=== PATIENT | male | born 1955 | race Caucasian/White ===

== ENCOUNTER 2022-11-20 07:13 | Outpatient (OUT) | payer MEDICARE, SELFPAY ==
[2022-11-20 07:55] LABS: Basophils Absolute Auto 0.1 10^3/uL (0.0-0.1); Basophils Percent Auto 0.9 % (0.2-2.0); Eosinophils Absolute Auto 0.1 10^3/uL (0.0-0.7); Eosinophils Percent Auto 1.9 % (0.9-7.0); Hematocrit 43.6 % (42.0-54.0); Hemoglobin 14.6 g/dL (14.0-18.0); Immature Granulocytes Abs Auto 0.02 10^3/uL (0.00-0.03); Immature Granulocytes Pct Auto 0.4 % (0.0-0.5); Lymphocytes Absolute Auto 1.7 10^3/uL (1.2-3.8); Lymphocytes Percent Auto 29.1 % (20.5-60.0); Mean Corpuscular HGB Conc 33.5 g/dL (29.9-35.2); Mean Corpuscular Volume 95.6 fL (80.0-94.0); Mean Platelet Volume 9.8 fL (9.5-13.5); Monocytes Absolute Auto 0.5 10^3/uL (0.3-0.8); Monocytes Percent Auto 8.4 % (1.7-12.0); Neutrophils Absolute Auto 3.4 10^3/uL (1.4-6.5); Neutrophils Percent Auto 59.3 % (43.0-75.0); Platelet Count 245 10^3/uL (150-450); Red Blood Count 4.56 10^6/uL (4.70-6.10); White Blood Count 5.7 10^3/uL (4.0-11.0)
[2022-11-20 08:12] LABS: Alanine Aminotransferase 39 U/L (16-63); Anion Gap 11.3; BUN Creatinine Ratio 11.3; Calcium 8.8 mg/dL (8.5-10.1); Carbon Dioxide 27.2 mmol/L (21.0-32.0); Chloride 105 mmol/L (98-107); Cholesterol 112 mg/dL (<=200); Estimated GFR (African America >60 (>=60); Estimated GFR (Non-African Ame >60 (>=60); Glucose 123 mg/dL (74-106); HDL Cholesterol 37 mg/dL (40-60); Potassium 4.5 mmol/L (3.5-5.1); Sodium 139 mmol/L (136-145); Triglycerides 64 mg/dL (<=150); VLDL CHOLESTEROL 12.8 mg/dL
[2022-11-20 09:23] LABS: Prostate Specific Antigen Scrn 0.95 ng/mL (<=4.00)
== END 2022-11-20 07:14 | disposition home or self-care (01) ==
LOC: LAB 07:17
PROVIDERS: PCP Internal Medicine; Visit Provider Internal Medicine
DX: E78.00 Pure hypercholesterolemia, unspecified (principal); Z79.899 Other long term (current) drug therapy; I10 Essential (primary) hypertension; Z12.5 Encounter for screening for malignant neoplasm of prostate
CPT/HCPCS: 36415; 80048; 80061; 84460; 85025; G0103

== ENCOUNTER 2023-11-16 07:05 | Outpatient (OUT) | payer MEDICARE, SELFPAY ==
[2023-11-16 07:27] LABS: Basophils Percent Auto 0.6 % (0.2-2.0); Eosinophils Absolute Auto 0.1 10^3/uL (0.0-0.7); Eosinophils Percent Auto 2.1 % (0.9-7.0); Hematocrit 42.2 % (42.0-54.0); Hemoglobin 14.5 g/dL (14.0-18.0); Immature Granulocytes Abs Auto 0.03 10^3/uL (0.00-0.03); Immature Granulocytes Pct Auto 0.5 % (0.0-0.5); Lymphocytes Percent Auto 31.9 % (20.5-60.0); Mean Corpuscular HGB Conc 34.4 g/dL (29.9-35.2); Mean Corpuscular Hemoglobin 32.5 pg (25.9-34.0); Mean Corpuscular Volume 94.6 fL (80.0-94.0); Mean Platelet Volume 9.8 fL (9.5-13.5); Monocytes Absolute Auto 0.6 10^3/uL (0.3-0.8); Monocytes Percent Auto 10.2 % (1.7-12.0); Neutrophils Absolute Auto 3.4 10^3/uL (1.4-6.5); Neutrophils Percent Auto 54.7 % (43.0-75.0); Platelet Count 231 10^3/uL (150-450); Red Blood Count 4.46 10^6/uL (4.70-6.10); Red Cell Distribution Width 12.2 % (11.0-15.0); White Blood Count 6.2 10^3/uL (4.0-11.0)
[2023-11-16 07:43] LABS: Alanine Aminotransferase 42 U/L (16-63); Albumin Level 3.7 g/dL (3.4-5.0); Alkaline Phosphatase 105 U/L (46-116); Aspartate Amino Transferase 24 U/L (15-37); BUN Creatinine Ratio 13.5; Bilirubin Total 0.4 mg/dL (0.2-1.0); Calcium 8.3 mg/dL (8.5-10.1); Carbon Dioxide 24.2 mmol/L (21.0-32.0); Chloride 105 mmol/L (98-107); Cholesterol 118 mg/dL (<=200); Estimated GFR (African America >60 (>=60); Estimated GFR (Non-African Ame >60 (>=60); Globulin 3.6 g/dL; Glucose 125 mg/dL (74-106); HDL Cholesterol 39 mg/dL (40-60); Potassium 4.2 mmol/L (3.5-5.1); Sodium 139 mmol/L (136-145); Total Protein 7.3 g/dL (6.4-8.2); Triglycerides 78 mg/dL (<=150); VLDL CHOLESTEROL 15.6 mg/dL
[2023-11-16 08:07] LABS: Prostate Specific Antigen Scrn 0.99 ng/mL (<=4.00)
== END 2023-11-16 07:06 | disposition home or self-care (01) ==
LOC: LAB 07:07
PROVIDERS: PCP Internal Medicine; Visit Provider Internal Medicine
DX: E78.00 Pure hypercholesterolemia, unspecified (principal); I10 Essential (primary) hypertension; Z12.5 Encounter for screening for malignant neoplasm of prostate
CPT/HCPCS: 36415; 80053; 80061; 85025; G0103

== ENCOUNTER 2024-06-13 08:06 | Outpatient (OUT) | payer MEDICARE, SELFPAY ==
--- OUTSIDE RECORDS SUMMARY | 2024-06-13 08:24 | XMS_ITS | CCD ---
Author Organization [facility] Care Team Providers Care Admissions Evaluator Name Role Phone DR JOSE VALENTE Admitting Unavailable SIDRA, DR GARCIA Attending Unavailable SIDRA, DR GARCIA Primary Care Unavailable SIDRA, DR GARCIA Consulting Unavailable Jose Valente Unavailable Allergies Allergy Classification Reported Allergen(s) Allergy Type Date of Onset Reaction(s) Facility (1 source) patient allergy list reviewed by nurse or physicia Propensity to adverse reactions 9 Comment:Done [employer] Other Medications Current Medications Medication Drug Class(es) Dates Sig (Normalized) Sig (Original) atorvastatin 10 mg oral tablet (7 sources) HMG-CoA Reductase Inhibitor Start: 08-02-2023 End: 11-13-2023 take 10 mg by mouth once daily Atorvastatin Active 10 MG PO Daily 90 90 November 13, 2023 10:42am take 1 tablet by nely th every twenty-four hours Atorvastatin Calcium 10 MG 1 tablet Oral ly Once a day Active lisinopril 20 mg oral tablet (5 sources) Angiotensin Converting Enzyme Inhibitor Start: 11-13-2023 take 20 mg by mouth once daily Lisinopril Active 20 MG PO Daily November 13, 2023 12:00am Lisinopril 20 MG TAKE 1 TABLET DAILY Active Problems Active Problems Problem Classification Problem Date Documented Da te Episodic/Chronic Diabetes mellitus without complication (1 source) Impaired fasting glucose Episodic Disorders of lipid metabolism (18 sources) Familial hypercholesterolemi a; Translations: [Pure hypercholesterolemi a] Onset: 03-31-2015 Chronic Diverticulosis and diverticulitis (4 sources) Diverticular disease; Translations: [Diverticulosis] Chronic Essential hypertension (13 sources) Essential (primary) hypertension; Translations: [Essential hypertension] Onset: 02-16-2014 Chronic Hyperplasia of prostate (8 sources) Lower urinary tract symptoms due to benign prostatic hypertrophy; Translations: [Benign prostatic hyperplasia with lower urinary tract symptoms] Onset: 11-11-2014 Chronic Immunizations and screening for infectious disease (2 sources) Vaccination given; Translations: [Encounter for immunization] Episodic Other aftercare (1 source) Other [employer] (current) drug therapy Episodic Other aftercare (2 sources) Long-term current use of drug therapy; Translations: [Other prison (current) drug therapy] Episodic Other nutritional; endocrine; and metabolic disorders (4 sources) Severe obesity; Translations: [Morbid (severe) obesity due to excess calories] Chronic Other nutritional; endocrine; and metabolic disorders (5 sources) Body mass index 30+ - obesity; Translations: [Body mass index (BMI) 36.0-36.9, adult] Chronic Other nutritional; endocrine; and metabolic disorders (2 sources) Morbid (severe) obesity due to excess calories Chronic Other nutritional; endocrine; and metabolic disorders (1 source) Body mass index (BMI) 36.0-36.9, adult Chronic Other nutritional; endocrine; and metabolic disorders (2 sources) Obese class II; Translations: [Body mass index 35.0-35.9, adult] Onset: 02-16-2014 Chronic Other nutritional; endocrine; and metabolic disorders (2 sources) Obese class I; Translations: [Body mass index 34.0-34.9, adult] Onset: 02-16-2014 Chronic Other nutritional; endocrine; and metabolic disorders (2 sources) Simple obesity ; Translations: [Other obesity due to excess calories] Onset: 02-16-2014 Chronic Other nutritional; endocrine; and metabolic disorders (1 source) Body mass index (BMI) 37.0-37.9, adult Chronic Other screening for suspected conditions (not mental disorders or infectious disease) (3 sources) Encounter for screening for malignant neoplasm of prostate; Translations: [Screening for malignant neoplasms of prostate] Onset: 11-15-2021 Episodic Substance-related disorders (2 sources) Tobacco user; Translations: [Nicotine dependence, cigarettes, in remission] Chronic Syncope (6 sources) Vasovagal syncope; Translations: [Syncope and collapse] Episodic Past or Other Problems Problem Classification Problem Date Documented Da te Episodic/Chronic Conditions associated with dizziness or vertigo (2 sources) Dizziness and giddiness; Translations: [Dizziness and giddiness] Onset: 02-16-2014 Episodic Gastrointestinal hemorrhage (2 sources) Melena; Translations: [Melena] Onset: 02-16-2014 Episodic Malaise and fatigue (2 sources) Malaise and fatigue; Translations: [Other malaise and fatigue] Onset: 07-02-2018 Episodic Other ear and sense organ disorders (2 sources) Infective otitis externa; Translations: [Other infective otitis externa, right ear] Onset: 02-28-2017 Episodic Other nutritional; endocrine; and metabolic disorders (2 sources) Obesity; Translations: [Obesity, unspecified] Resolved: 05-09-2022 Chronic Other skin disorders (2 sources) Actinic keratosis; Translations: [Actinic keratosis] Onset: 11-11-2014 Episodic Otitis media and related conditions (2 sources) Eustachian tube salpingitis; Translations: [Unspecified Eustachian salpingitis, right ear] Resolved: 05-09-2022 Episodic Screening and history of mental health and substance abuse codes (2 sources) History of tobacco use; Translations: [Personal history of tobacco use, presenting hazards to health] Onset: 02-28-2017 Episodic Unclassified (2 sources) Long-term current use of drug therapy; Translations: [Long-term (current) use of other medications] Onset: 06-29-2016 Results Test Name Value Interpretation Reference Range Facil ity CBC AUTO DIFFon 11-10-2021 BASO # 0.0 103/ul Normal 0.0-0.1 [facility] Comment on above: Performed By: #### C BC #### [facility] [address] [place] [address] Dr. Casi Crews Basophils/100 WBC (Bld) 0.6 % Normal 0.2-2.[address] [facility] Comment on above: Performed By: #### C BC #### [facility] [address] [address] [address] Casi Crews EO # 0.1 103/ul Normal 0.0-0.[address] [facility] Comment on above: Performed By: #### C BC #### [facility] [address] [place] [address] Dr. Casi Crews Eosinophils/100 WBC (Bld) 1.6 % Normal 0.9-7.0 [facility] Comment on above: Performed By: #### C BC #### [facility] [address] [place] [address] Dr. Casi Crews Erythrocyte distribution width (RBC) [Ratio] 12.5 % Normal 11.0-15.0 [facility] Comment on above: Performed By: #### C BC #### [facility] [address] [place] [address] Dr. Casi Crews Hematocrit (Bld) [Volume fraction] 44.1 % Normal 42.0-54.0 [facility] Comment on above: Performed By: #### C BC #### [facility] [address] [place] [address] Dr. Casi Crews Hemoglobin (Bld) [Mass/Vol] 15.0 g/dL Normal 14.0-18.0 [facility] Comment on above: Performed By: #### C BC #### [facility] [address] [place] [address] Dr. Casi Crews IG # 0.02 10e3/ul Normal 0.00-0.03 [facility] Comment on above: Performed By: #### C BC #### [facility] [address] [place] [address] Dr. Casi Crews IG % 0.3 % Normal 0.0-0.5 [facility] Comment on above: Performed By: #### C BC #### [facility] [address] [place] [address] Dr. Casi Crews LYMPH # 1.7 103/ul Normal 1.2-3.8 [facility] Comment on above: Performed By: #### C BC #### [facility] [address] [place] [address] Dr. Casi Crews Lymphocytes/100 WBC (Bld) 27.5 % Normal 20.5-60.0 [facility] Comment on above: Performed By: #### C BC #### [facility] [address] [place] [address] Dr. Casi Crews MANUAL DIFF REQ NO Normal [facility] Comment on above: Performed By: #### C BC #### [facility] [address] [place] [address] Dr. Casi Cresw MCH (RBC) [Entitic mass] 32.1 pg Normal 25.9-34.[address] [facility] Comment on above: Performed By: #### C BC #### [facility] [address] [place] [address] Dr. Casi Crews MCHC (RBC) [Mass/Vol] 34.0 g/dL Normal 29.9-35.[address] [facility] Comment on above: Performed By: #### C BC #### [facility] [address] [place] [address] Dr. Casi Crews MCV (RBC) [Entitic vol] 94.2 fL Critically high 80.0-94.0 [facility] Comment on above: Performed By: #### C BC #### [facility] [address] [place] [address] Dr. Casi Crews MONO # 0.6 103/ul Normal 0.3-0.8 [facility] Comment on above: Performed By: #### C BC #### [facility] [address] [place] [address] Dr. Casi Crews Monocytes/100 WBC (Bld) 9.3 % Normal 1.7-12.0 [facility] Comment on above: Performed By: #### C BC #### [facility] [address] [place] [address] Dr. Casi Crews NEUT # 3.8 103/ul Normal 1.4-6.[address] [facility] Comment on above: Performed By: #### C BC #### [facility] [address] [place] [address] Dr. Casi Crews Neutrophils/100 WBC (Bld) 60.7 % Normal 43.0-75.[address] [facility] Comment on above: Performed By: #### C BC #### [facility] [address] [place] [address] Dr. Casi Crews Platelet mean volume (Bld) [Entitic vol] 9.8 fL Normal 9.5-13.[address] [facility] Comment on above: Performed By: #### C BC #### [facility] [address] [place] [address] Dr. Casi Crews PLT 226 103/ul Normal 150-450 [facility] Comment on above: Performed By: #### C BC #### [facility] [address] [address] [address] Casi Crews RBC 4.68 106/ul Critically low 4.70-6.10 [facility] Comment on above: Performed By: #### C BC #### [facility] [address] [address] [address] Casi Crews WBC 6.2 103/ul Normal 4.0-11.0 [facility] Comment on above: Performed By: #### C BC #### [facility] [address] [place] [address] Dr. Casi Crews LIPID PROFILEon 11-10-2021 CHOL-HDL RATIO NORM SEE BELOW Normal [facility] Comment on above: Result Comment: 3.3 - 4.4 LOW RISK 4.4 - 7.1 AVERAGE RISK 7.1 - 11.0 MODERATE RISK >11.0 HIGH RISK Performed By: #### B MP, LIPID #### [facility] [address] [place] [address] Dr. Casi Crews Cholesterol [Mass/Vol] 113 mg/dL Normal <=200 [facility] Comment on above: Performed By: #### B MP, LIPID #### [facility] [address] [place] [address] Dr. Casi Crews Cholesterol in HDL [Mass/Vol] 32 mg/dL Critically low 40-60 [facility] Comment on above: Performed By: #### B MP, LIPID #### [facility] [address] [place] [address] Dr. Casi Crews Cholesterol in LDL [Mass/Vol] 68.8 mg/dL Normal [facility] Comment on above: Performed By: #### B MP, LIPID #### [facility] [address] [place] [address] Dr. Casi Crews Cholesterol.total/C holesterol in HDL [Mass ratio] 3.5 {ratio} Normal [facility] Comment on above: Performed By: #### B MP, LIPID #### [facility] [address] [address] [address] Casi Crews HDL NORMAL > or = 60 mg/dl - LO W CARDIOVASCULAR RISK <40 mg/dl - HIGH CARDIOVASCULAR RISK Normal [facility] Comment on above: Performed By: #### B MP, LIPID #### [facility] [address] [address] [address] Casi Crews LDL CALC NORMAL SEE BELOW Normal [facility] Comment on above: Result Comment: <100 mg/dl OPTIMAL 100 - 129 mg/dl NEAR OR ABOVE OPTIMAL 130 - 159 mg/dl BORDERLINE HIGH 160 - 189 mg/dl HIGH >190 mg/dl VERY HIGH Performed By: #### B MP, LIPID #### [facility] [address] [place] [address] Dr. Casi Crews Triglyceride [Mass/Vol] 61 mg/dL Normal <=150 [facility] Comment on above: Performed By: #### B MP, LIPID #### [facility] [address] [address] [address] Casi Crews VLDL CALC 12.2 mg/dL Normal [facility] Comment on above: Performed By: #### B MP, LIPID #### [facility] [address] [place] [address] Dr. Casi Crews PROF CHEM 8 (BAS METB)on Anion gap [Moles/Vol] 14.5 mmol/L Normal [facility] Comment on above: Performed By: #### B MP, LIPID #### [facility] [address] [place] [address] Dr. Casi Crews Calcium [Mass/Vol] 8.9 mg/dL Normal 8.5-10.1 [facility] Comment on above: Performed By: #### B MP, LIPID #### [facility] [address] [place] [address] Dr. Casi Crews Chloride [Moles/Vol] 104 mmol/L Normal 98-107 [facility] Comment on above: Performed By: #### B MP, LIPID #### [facility] [address] [place] [address] Dr. Casi Crews CO2 [Moles/Vol] 22.9 mmol/L Normal 21.0-32.0 [facility] Comment on above: Performed By: #### B MP, LIPID #### [facility] [address] [address] [address] Casi Cresw Creatinine [Mass/Vol] 1.00 mg/dL Normal 0.70-1.30 [facility] Comment on above: Performed By: #### B MP, LIPID #### [facility] [address] [address] [address] Casi Crews EGFR-AF IRAQI >60 Normal >=60 [facility] Comment on above: Performed By: #### B MP, LIPID #### [facility] [address] [place] [address] Dr. Casi Crews EGFR-NON AF IRAQI >60 Normal >=60 [facility] Comment on above: Performed By: #### B MP, LIPID #### [facility] [address] [place] [address] Dr. Casi Crews Glucose [Mass/Vol] 112 mg/dL Critically high 74-106 [facility] Comment on above: Performed By: #### B MP, LIPID #### [facility] [address] [place] [address] Dr. Casi Crews Potassium [Moles/Vol] 4.4 mmol/L Normal 3.5-5.1 [facility] Comment on above: Performed By: #### B MP, LIPID #### [facility] [address] [place] [address] Dr. Casi Crews Sodium [Moles/Vol] 137 mmol/L Normal 136-145 [facility] Comment on above: Performed By: #### B MP, LIPID #### [facility] [address] [place] [address] Dr. Casi Crews Urea nitrogen [Mass/Vol] 12.0 mg/dL Normal 7.0-18.0 [facility] Comment on above: Performed By: #### B MP, LIPID #### [facility] [address] [place] [address] Dr. Casi Crews Urea nitrogen/Creatinine [Mass ratio] 12.0 mg/mg Normal [facility] Comment on above: Performed By: #### B MP, LIPID #### [facility] [address] [address] [address] Casi Crews Vital Signs Date Time Vital Sign Value Performing Clinician Facility 11-13-2023 10:16-0400 Body height 175.26 cm [facility] 11-13-2023 10:16-0400 Body mass index (BMI) [Ratio] 35.4 kg/m2 [facility] 11-13-2023 10:16-0400 Body weight 108.63 kg [facility] 11-13-2023 10:16-0400 Diastolic blood pressure 74 mm[Hg] [facility] 11-13-2023 10:16-0400 Heart rate 78 /min [facility] 11-13-2023 10:16-0400 Respiratory rate 12 /min [facility] 11-13-2023 10:16-0400 Systolic blood pressure 116 mm[Hg] [facility] 06-29-2023 10:30-0500 Body height 170.18 cm Jose Ball Other [facility] [employer] Other 06-29-2023 10:30-0500 Body mass index (BMI) [Ratio] 37.99 kg/m2 Jose Ball Other [facility] [employer] Other 06-29-2023 10:30-0500 Body weight 110.04 kg Jose Ball Other [employer] [facility] [employer] Other 06-29-2023 10:30-0500 Diastolic blood pressure 84 mm[Hg] Jose Ball Other [facility] [employer] Other 06-29-2023 10:30-0500 Respiratory rate 12 /min Jose Ball Other [employer] [facility] [employer] Other 06-29-2023 10:30-0500 Systolic blood pressure 144 mm[Hg] Jose Ball Other [employer] Other 11-09-2022 09:00-0400 Body height 170.18 cm Jose Ball Other [employer] Other 11-09-2022 09:00-0400 Body mass index (BMI) [Ratio] 36.96 kg/m2 Jose Ball Other [employer] Other 11-09-2022 09:00-0400 Body weight 107.05 kg Jose Ball Other [employer] Other 11-09-2022 09:00-0400 Diastolic blood pressure 74 mm[Hg] Jose Ball Other [employer] Other 11-09-2022 09:00-0400 Respiratory rate 12 /min Jose Ball Other [employer] Other 11-09-2022 09:00-0400 Systolic blood pressure 111 mm[Hg] Jose Ball Other [employer] Other Encounters Encounter Date Encounter Type Care Provider Facility Start: 11-13-2023 End: 11-13-2023 ambulatory [facility] Work Phone: Start: 11-13-2023 End: 11-13-2023 Patient encounter procedure [facility] Work Phone: Start: 06-29-2023 End: 06-29-2023 ambulatory Jose Ball Other [employer] Other Start: 06-29-2023 Office outpatient vi sit 25 minutes Jose Ball [facility] Start: 06-08-2023 End: 06-08-2023 ambulatory Jose Ball Other [employer] Other Start: 06-08-2023 Telephone encounter Jose Sidra [facility] Start: 11-20-2022 End: 11-20-2022 ambulatory Jose Valente Other [employer] Other Start: 11-20-2022 Telephone encounter [facility] Start: 11-09-2022 End: 11-09-2022 ambulatory Jose Valente Other [employer] Other Start: 11-09-2022 Patient encounter procedure [facility] Start: 11-10-2021 End: 11-11-[address] JOSE VALENTE Facility: Start: 11-08-2021 Adult health examination Jose Valente Other [employer] Other Procedures Date Procedure Procedure Detail Performing Clinician Start: 11-10-[address] MARSHALL IN [place] Comment on above: Performed By: #### [facility] #### [facility] [address] [place] [address] Dr. Casi Crews Start: 03-31-2015 General examination of patient Jose Valente Other Start: 03-31-2015 Screening for malign ant neoplasm of prostate Jose Valente Other Depression screening Quinn Valente Other Screening for malign ant neoplasm of colon Jose Valente Other Screening for malign ant neoplasm of prostate Jose Valente Other Plan of Treatment Date Care Activity Detail Author Comprehensive metabo lic 2000 panel - Serum or Plasma [facility] enter [facility] Immunizations Immunization Date Immunization Notes Care Provider Fa cili 05-03-2021 pneumococcal polysaccharide vaccine, 23 valent Jose Valente Other [facility] 04-22-2021 COVID-19 [facility] Other [facility] 08-31-2020 COVID-19 Nicole Garcia [facility] Other [facility] 08-03-2020 COVID-19 Nicole Garcia [facility] Other [facility] 06-04-2015 tetanus and diphther ia toxoids, adsorbed, preservative free, for adult use (5 Lf of tetanus toxoid and 2 Lf of diphtheria toxoid) [facility] 06-04-2015 tetanus toxoid, redu evelyne diphtheria toxoid, and acellular pertussis vaccine, adsorbed Jose Ball Other [employer] Other Payers Date Payer Category Payer Unknown [id number] 1955 Unknown [id number] Social History Date Type Detail Facility Sex Assigned At [facility] [employer] Other Start: 11-13-2023 Tobacco smoking stat us [facility] Never smoked tobacco (finding) [facility] Start: 1955 Sex Assigned At Male F [facility] Evaluation note 06-29-2023 Note Date & Type Note Facility 06-29-2023 Evaluation note Encounter Date Diagnosis Assessment Notes Jun, Primary hypertension (ICD-10 - I10) This patient is instructed to consume a healthy, low-fat, low-salt diet. They are also encouraged to continue exercise to achieve/maintain a normal BMI. Patient is instructed on home BP measurements: - rest for 5 minutes w/o talking.- positioned w/ feet on floor and arm supported.- average best 2/3 readings w/ goal < 135/85.- update office w/ home readings in 2 weeks. Jun, IFG (impaired fasting glucose) (ICD-10 - R73.01) Instructed on a low calorie, low carb, high fiber diet. Instructed to begin exercise routine at minimum 3x weekly and lose weight. Sent order for A1C to hospital Reviewed s/s diabetes and adverse effects of uncontrolled diabetes Jun, Pure hypercholesterolemia (ICD-10 - E78.00) Instructed on diet and exercise with continued statin therapy.Discusse d the beneficial effects of lowering cholesterol in reducing the risk for cerebrovascular and cardiovascular disease. Jun, Morbid (severe) obesity due to excess calories (ICD-10 - E66.01) This patient has been instructed on a low-fat, high-fiber diet. They are instructed to reduce calories, portion sizes and snacks. It is recommended that they exercise for 30 minutes, 3-5 times weekly. Jun, Body mass index [BMI] 37.0-37.9, adult (ICD-10 - Z68.37) [employer] Other Evaluation note 11-09-2022 Note Date & Type Note Facility 11-09-2022 Evaluation note Encounter Date Diagnosis Assessment Notes Oct, Medicare annual wellness visit, initial (ICD-10 - Z00.00) Personalized health advice was given to the beneficiary including a written plan for screenings discussed and provided. Advanced care planning reviewed and/or information given as requested. Additional counseling was provided here today in regards to, [ ]. The above visit was performed by [ ] under direct supervision of [ ]. Document reviewed and amended by provider signed below. Oct, Primary hypertension (ICD-10 - I10) This patient is instructed to consume a healthy, low-fat, low-salt diet. They are also encouraged to continue exercise to achieve/maintain a normal BMI. Oct, Pure hypercholesterolemia (ICD-10 - E78.00) Instructed on diet and exercise with continued statin therapy.Discusse d the beneficial effects of lowering cholesterol in reducing the risk for cerebrovascular and cardiovascular disease. Oct, Morbid (severe) obesity due to excess calories (ICD-10 - E66.01) Oct, Body mass index [BMI] 36.0-36.9, adult (ICD-10 - Z68.36) Oct, Screening PSA (prostate specific antigen) (ICD-10 - Z12.5) Yearly JOJO and PSA Oct, High risk medication use (ICD-10 - Z79.899) [employer] Other Evaluation note Note Date & Type Note Facility Evaluation note No Information [facility] Other Evaluation note Note Date & Type Note Facility Evaluation note Diagnosis Onset Date Hypercholesterolemia acute Hypertension acute Medicare annual wellness visit, subsequent noneactive Screening PSA (prostate specific antigen) noneactive [facility] Work Phone: History general Narrative - Reported Note Date & Type Note Facility History general Narrative - Reported Type Medical History Benign prostatic hyp erplasia with lower urinary tract symptoms Medical History Primary hypertension Medical History Pure hypercholesterolemia Medical History Vasovagal syncope Surgical History COLONOSCOPY 2013 Surgical History APPENDECTOMY Hospitalization History SEE SURGICAL HX [employer] Other History general Narrative - Reported Note Date & Type Note Facility History general Narrative - Reported [employer] Other Summary Purpose Family History Relationship Condition Age at Onset Recorded Date/T akosua father Heart disease Unknown Hypertension Unknown Advance Directives Advance Directive Response Recorded Date/ Time Advance Directives No June 29, 2023 11:53am Chief Complaint and Reason for Visit Chief Complaint Wellness Reason for Visit Hypercholesterolemia Hypertension Medicare annual wellness visit, subsequent Screening PSA (prostate specific antigen) Additional Source Comments (unrecognized sect ion and content) No Status Records Found INFORMATION SOURCE (unrecogn ized section and content) DATE CREATED AUTHOR 11/16/2021 [facility] REASON FOR VISIT (unrecogniz ed section and content) WELLNESSCologuardBP check Care Teams (unrecognized sec tion and content) Team Status: Active Member Role Status Dates Jose Valente DO Primary Care Provider Active Team Status: Inactive Member Role Status Dates Jose Valente DO Primary Care Provide r, Attending Provider Active Start: November 13, 2023 End: November 13, 2023 Goals (unrecognized section and content) Goals may be documented in a n alternate section FOR RECORDS PERTAINING TO PATIENTS WHO ARE OR HAVE BEEN ENROLLED IN A CHEMICAL DEPENDENCY/SUBSTANCEABUSE PROGRAM, SOME INFORMATION MAY BE OMITTED. This clinical summary was aggregated from multiple sources. Caution should be exercised in using it in the provision of clinical care. This summary normalizes information from multiple sources, and as a consequence, information in this document may materially change the coding, format and clinical context of patient data. In addition, data may be omitted in some cases. CLINICAL DECISIONS SHOULD BE BASED ON THE PRIMARY CLINICAL RECORDS. [employer] provides no warranty or guarantee of the accuracy or completeness of information in this document.
[2024-06-13 09:23] LABS: Estimated Average Glucose 126 mg/dL
== END 2024-06-13 08:07 | disposition home or self-care (01) ==
LOC: LAB 08:07
PROVIDERS: PCP Internal Medicine; Visit Provider Internal Medicine
DX: R73.01 Impaired fasting glucose (principal)
CPT/HCPCS: 36415; 83036

== ENCOUNTER 2025-01-16 09:05 | Outpatient (OUT) | payer MEDICARE, SELFPAY ==
--- NOTE | 2025-01-16 09:16 | XR_ITS ---
The [address] [address] Patient Name: GWEN VEGA MRN: [id number] date: 1955 Sex: M Assigned Patient Location: [facility] Current Patient Location: [facility] Accession/Order Number: [id number] Exam Date: 01/16/2025 09:35 Report Date: 01/16/2025 11:05 At the request of: MERCEDES VALENTE DO Procedure: XR knee SAMEER 4V BILATERAL KNEES - 4 views each COMPARISON: None CLINICAL DATA: Bilateral knee pain for the past couple months, without injury. Difficulty ambulating. Weightbearing AP, lateral, internal oblique and patellar views were obtained. No acute fractures or dislocation are noted. No patellar subluxation is seen. There is mild to moderate narrowing at the medial tibiofemoral joint compartment on the right. There is no disproportionate joint space narrowing on the left. Tricompartment marginal spurring is seen. There is a trace amount joint fluid. No soft tissue swelling is noted. XR/XR knee SAMEER 4V IMPRESSION: MILD DEGENERATIVE CHANGES, GREATEST AT THE MEDIAL RIGHT KNEE. NO ACUTE BONY FINDINGS. Impression dictated by: Ruby Govea M.D. 01/16/2025 11:05 AM Dictation Location: [place] [address] Electronically authenticated by: [id number] Y Date: 01/16/2025 11:05
--- OUTSIDE RECORDS SUMMARY | 2025-01-16 09:18 | XMS_ITS | CCD ---
Author Organization [facility] CliniSyfl Care Team Providers Care Residential Care Facility Manager Name Role Phone DR JOSE VALENTE Admitting Unavailable SIDRA, DR GARCIA Attending Unavailable SIDRA, DR GARCIA Primary Care Unavailable SIDRA, DR GARCIA Consulting Unavailable Jose Valente Unavailable Jose Valente DO Primary Care Provider [phone] Jose Valente DO Attending Provider Allergies Allergy Classification Reported Allergen(s) Allergy Type Date of Onset Reaction(s) Facility (1 source) patient allergy list reviewed by nurse or physicia Propensity to adverse reactions Comment:Done [facility] Wanted Other Medications Current Medications Medication Drug Class(es) Dates Sig (Normalized) Sig (Original) atorvastatin 10 mg oral tablet (11 sources) HMG-CoA Reductase Inhibitor Start: 10-24-2024 take 1 tablet by mouth once daily Atorvastatin 10 mg tablet Active 0 .ROUTE .COMPLEX October 24, 2024 7:40am TAKE ONE TABLET BY MOUTH EVERY DAY Complies with drug therapy Start: 08-02-2023 End: 10-24-2024 take 1 tablet by mouth once daily Atorvastatin 10 mg tablet Discontinued 10 MG PO Daily November 13, 2023 10:42am October 24, 2024 7:40am take 1 tablet by nely th every twenty-four hours Atorvastatin Calcium 10 MG 1 tablet Orally Once a day Active lisinopril 20 mg oral tablet (7 sources) Angiotensin Converting Enzyme Inhibitor Start: 02-25-2024 Lisinopril 20 mg tablet Active 0 .ROUTE .COMPLEX February 25, 2024 8:47am TAKE 1 TABLET DAILY Complies with drug therapy Start: 11-13-2023 End: 02-25-2024 take 1 tablet by mouth once daily Lisinopril 20 mg tablet Discontinued 20 MG PO Daily November 13, 2023 12:00am February 25, 2024 8:47am Lisinopril 20 MG TAKE 1 TABLET DAILY Active Problems Active Problems Problem Classification Problem Date Documented Date Episodic/Chronic Diabetes mellitus without complication (3 sources) Impaired fasting glucose; Translations: [Impaired fasting glycemia] Episodic Disorders of lipid metabolism (20 sources) Familial hypercholesterolemia; Translations: [Pure hypercholesterolemia] Onset: 03-31-2015 Chronic Diverticulosis and diverticulitis (4 sources) Diverticular disease; Translations: [Diverticulosis] Chronic Essential hypertension (15 sources) Essential (primary) hypertension; Translations: [Essential hypertension] Onset: 02-16-2014 Chronic Hyperplasia of prostate (8 sources) Lower urinary tract symptoms due to benign prostatic hypertrophy; Translations: [Benign prostatic hyperplasia with lower urinary tract symptoms] Onset: 11-11-2014 Chronic Immunizations and screening for infectious disease (2 sources) Vaccination given; Translations: [Encounter for immunization] Episodic Osteoarthritis (2 sources) Osteoarthritis of right knee joint; Translations: [Unilateral primary osteoarthritis, right knee] 05-05-2024 Chronic Other aftercare (1 source) Other group home (current) drug therapy Episodic Other aftercare (2 sources) Long-term current use of drug therapy; 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] Episodic Other non-traumatic joint disorders (1 source) Pain in right knee; Translations: [Right knee pain] 05-05-2024 Episodic Other nutritional; endocrine; and metabolic disorders [...] Chronic Other nutritional; endocrine; and metabolic disorders (4 sources) Obesity; Translations: [Obesity, unspecified] Resolved: 05-09-2022 05-05-2024 Chronic Other nutritional; endocrine; and metabolic disorders (1 source) Body mass index (BMI) 37.0-37.9, adult Chronic Other screening for suspected conditions (not mental disorders or infectious disease) (5 sources) Encounter for screening for malignant neoplasm [...] externa, right ear] Onset: 02-28-2017 Episodic Other skin disorders (2 sources) Actinic keratosis; [...] 11-10-2021 BASO # 0.0 103/ul Normal 0.0-0.1 [facility] Comment on above: Performed By: #### C BC #### [facility] [address] [address] [address] Casi Crews Basophils/100 WBC (Bld) 0.6 % Normal 0.2-2.0 [facility] Comment on above: Performed By: #### C BC #### [facility] [address] [place] [address] Dr. Casi Crews EO # 0.1 103/ul Normal 0.0-0.7 [facility] Comment on above: Performed By: #### C BC #### [facility] [address] [place] [address] Dr. Casi Crews Eosinophils/100 WBC (Bld) 1.6 % Normal 0.9-7.0 [facility] Comment on above: Performed By: #### C BC #### [facility] [address] [place] [address] Dr. Casi Crews Erythrocyte distribution width (RBC) [Ratio] 12.5 % Normal 11.0-15.0 [facility] Comment on above: Performed By: #### C BC #### [facility] [address] [place] [address] Dr. Casi Crews Hematocrit (Bld) [Volume fraction] 44.1 % Normal 42.0-54.0 [facility] Comment on above: Performed By: #### C BC #### [facility] [address] [place] [address] Dr. Casi Crews Hemoglobin (Bld) [Mass/Vol] 15.0 g/dL Normal 14.0-18.0 [facility] Comment on above: Performed By: #### C BC #### [facility] [address] [place] [address] Dr. Casi Crews IG # 0.02 10e3/ul Normal 0.00-0.03 [facility] Comment on above: Performed By: #### C BC #### [facility] [address] [place] [address] Dr. Casi Crews IG % 0.3 % Normal 0.0-0.5 [facility] Comment on above: Performed By: #### C BC #### [facility] [address] [place] [address] Dr. Casi Crews LYMPH # 1.7 103/ul Normal 1.2-3.8 [facility] Comment on above: Performed By: #### C BC #### [facility] [address] [place] [address] Dr. Casi Crews Lymphocytes/100 WBC (Bld) 27.5 % Normal 20.5-60.0 [facility] Comment on above: Performed By: #### C BC #### [facility] [address] [place] [address] Dr. Casi Crews MANUAL DIFF REQ NO Normal [facility] Comment on above: Performed By: #### C BC #### [facility] [address] [place] [address] Dr. Casi Crews MCH (RBC) [Entitic mass] 32.1 pg Normal 25.9-34.0 [facility] Comment on above: Performed By: #### C BC #### [facility] [address] [place] [address] Dr. Casi Crews MCHC (RBC) [Mass/Vol] 34.0 g/dL Normal 29.9-35.2 [facility] Comment on above: Performed By: #### C BC #### [facility] [address] [place] [address] Dr. Casi Crews MCV (RBC) [Entitic vol] 94.2 fL Critically high 80.0-94.0 [facility] Comment on above: Performed By: #### C BC #### [facility] [address] [place] [address] Dr. Casi Crews MONO # 0.6 103/ul Normal 0.3-0.8 [facility] Comment on above: Performed By: #### C BC #### [facility] [address] [place] [address] Dr. Casi Crews Monocytes/100 WBC (Bld) 9.3 % Normal 1.7-12.0 [facility] Comment on above: Performed By: #### C BC #### [facility] [address] [address] [address] Casi Crews NEUT # 3.8 103/ul Normal 1.4-6.5 [facility] Comment on above: Performed By: #### C BC #### [facility] [address] [address] [address] Casi Crews Neutrophils/100 WBC (Bld) 60.7 % Normal 43.0-75.0 [facility] Comment on above: Performed By: #### C BC #### [facility] [address] [address] [address] Casi Crews Platelet mean volume (Bld) [Entitic vol] 9.8 fL Normal 9.5-13.5 [facility] Comment on above: Performed By: #### C BC #### [facility] [address] [address] [address] Casi Crews PLT 226 103/ul Normal 150-450 [facility] Comment on above: Performed By: #### C BC #### [facility] [address] [address] [address] Casi Crews RBC 4.68 106/ul Critically low 4.70-6.10 [facility] Comment on above: Performed By: #### C BC #### [facility] [address] [address] [address] Casi Crews WBC 6.2 103/ul Normal 4.0-11.0 [facility] Comment on above: Performed By: #### C BC #### [facility] [address] [address] [address] Casi Crews LIPID PROFILEon 11-10-2021 CHOL-HDL RATIO NORM SEE BELOW Normal [facility] Comment on above: Result Comment: 3.3 - 4.4 LOW RISK 4.4 - 7.1 AVERAGE RISK 7.1 - 11.0 MODERATE RISK >11.0 HIGH RISK Performed By: #### B MP, LIPID #### [facility] [address] [address] [address] Casi Crews Cholesterol [Mass/Vol] 113 mg/dL Normal <=200 [facility] Comment on above: Performed By: #### B MP, LIPID #### [facility] [address] [address] [address] Casi Crews Cholesterol in HDL [Mass/Vol] 32 mg/dL Critically low 40-60 [facility] Comment on above: Performed By: #### B MP, LIPID #### [facility] [address] [address] [address] Casi Crews Cholesterol in LDL [Mass/Vol] 68.8 mg/dL Normal [facility] Comment on above: Performed By: #### B MP, LIPID #### [facility] [address] [address] [address] Casi Crews Cholesterol.total/C holesterol in HDL [Mass ratio] 3.5 {ratio} Normal [facility] Comment on above: Performed By: #### B MP, LIPID #### [facility] [address] [address] [address] Casi Crews HDL NORMAL > or = 60 mg/dl - LO W CARDIOVASCULAR RISK <40 mg/dl - HIGH CARDIOVASCULAR RISK Normal [facility] Comment on above: Performed By: #### B MP, LIPID #### [facility] [address] [address] [address] Casi Crews LDL CALC NORMAL SEE BELOW Normal [facility] Comment on above: Result Comment: <100 mg/dl OPTIMAL 100 - 129 mg/dl NEAR OR ABOVE OPTIMAL 130 - 159 mg/dl BORDERLINE HIGH 160 - 189 mg/dl HIGH >190 mg/dl VERY HIGH Performed By: #### B MP, LIPID #### [facility] [address] [address] [address] Casi Crews Triglyceride [Mass/Vol] 61 mg/dL Normal <=150 [facility] Comment on above: Performed By: #### B MP, LIPID #### [facility] [address] [address] [address] Casi Crews VLDL CALC 12.2 mg/dL Normal [facility] Comment on above: Performed By: #### B MP, LIPID #### [facility] [address] [place] [address] Dr. Casi Crews PROF CHEM 8 (BAS METB)on Anion gap [Moles/Vol] 14.5 mmol/L Normal [facility] Comment on above: Performed By: #### B MP, LIPID #### [facility] [address] [place] [address] Dr. Casi Crews Calcium [Mass/Vol] 8.9 mg/dL Normal 8.5-10.1 [facility] Comment on above: Performed By: #### B MP, LIPID #### [facility] [address] [place] [address] Dr. Casi Crews Chloride [Moles/Vol] 104 mmol/L Normal 98-107 [facility] Comment on above: Performed By: #### B MP, LIPID #### [facility] [address] [place] [address] Dr. Casi Crews CO2 [Moles/Vol] 22.9 mmol/L Normal 21.0-32.0 [facility] Comment on above: Performed By: #### B MP, LIPID #### [facility] [address] [place] [address] Dr. Casi Crews Creatinine [Mass/Vol] 1.00 mg/dL Normal 0.70-1.30 [facility] Comment on above: Performed By: #### B MP, LIPID #### [facility] [address] [place] [address] Dr. Casi Crews EGFR-AF INDIAN >60 Normal >=60 [facility] Comment on above: Performed By: #### B MP, LIPID #### [facility] [address] [place] [address] Dr. Casi Crews EGFR-NON AF INDIAN >60 Normal >=60 [facility] Comment on above: Performed By: #### B MP, LIPID #### [facility] [address] [place] [address] Dr. Casi Crews Glucose [Mass/Vol] 112 mg/dL Critically high 74-106 [facility] Comment on above: Performed By: #### B MP, LIPID #### [facility] [address] [place], [place] [address] Dr. Casi Crews Potassium [Moles/Vol] 4.4 mmol/L Normal 3.5-5.1 [facility] Comment on above: Performed By: #### B MP, LIPID #### [facility] [address] [place], [place] [address] Dr. Casi Crews Sodium [Moles/Vol] 137 mmol/L Normal 136-145 [facility] Comment on above: Performed By: #### B MP, LIPID #### [facility] [address] [place], [place] [address] Dr. Casi Crews Urea nitrogen [Mass/Vol] 12.0 mg/dL Normal 7.0-18.0 [facility] Comment on above: Performed By: #### B MP, LIPID #### [facility] [address] [place], [place] [address] Dr. Casi Crews Urea nitrogen/Creatinine [Mass ratio] 12.0 mg/mg Normal [facility] Comment on above: Performed By: #### B MP, LIPID #### [facility] [address] [place], [place] [address] Dr. Casi Crews Vital Signs Date Time Vital Sign Value Performing Clinician Facility 12-09-2024 10:15040 Body height 175.26 cm Jose Ball DO Work Phone: [facility] 12-09-2024 10:15-0400 Body mass index (BMI) [Ratio] 35.3 kg/m2 Jose Ball DO Work Phone: [facility] 12-09-2024 10:150400 Body weight 108.46 kg Jose Ball DO Work Phone: [facility] 12-09-2024 10:15-0400 Diastolic blood pressure 76 mm[Hg] Jose Ball DO Work Phone: [facility] 12-09-2024 10:15-0400 Heart rate 91 /min Jose Ball DO Work Phone: [facility] 12-09-2024 10:15-0400 Respiratory rate 12 /min Jose Ball DO Work Phone: [facility] 12-09-2024 10:15-0400 Systolic blood pressure 117 mm[Hg] Jose Ball DO Work Phone: [facility] 11-13-2023 10:16-0400 Body height 175.26 cm [facility] 11-13-2023 10:16-0400 Body mass index (BMI) [Ratio] 35.4 kg/m2 [facility] 11-13-2023 10:16-0400 Body weight 108.63 kg [facility] 11-13-2023 10:16-0400 Diastolic blood pressure 74 mm[Hg] [facility] 11-13-2023 10:16-0400 Heart rate 78 /min [facility] 11-13-2023 10:16-0400 Respiratory rate 12 /min [facility] 11-13-2023 10:16-0400 Systolic blood pressure 116 mm[Hg] [facility] 06-29-2023 10:30-0500 Body height 170.18 cm Jose Ball Other [facility] [employer] Other 06-29-2023 10:30-0500 Body mass index (BMI) [Ratio] 37.99 kg/m2 Jose Ball Other [facility] Other 06-29-2023 10:30-0500 Body weight 110.04 kg Jose Ball Other [facility] [employer] Other 06-29-2023 10:30-0500 Diastolic blood pressure 84 mm[Hg] Jose Ball Other [facility] Other 06-29-2023 10:30-0500 Respiratory rate 12 /min Jose Ball Other [facility] Other 06-29-2023 10:30-0500 Systolic blood pressure 144 mm[Hg] Jose Ball Other [facility] [employer] Other 11-09-2022 09:00-0400 Body height 170.18 cm Jose Valente Other [facility] Other 11-09-2022 09:00-0400 Body mass index (BMI) [Ratio] 36.96 kg/m2 Jose Valente Other [facility] Other 11-09-2022 09:00-0400 Body weight 107.05 kg Jose Valente Other [facility] Other 11-09-2022 09:00-0400 Diastolic blood pressure 74 mm[Hg] Jose Valente Other [facility] Other 11-09-2022 09:00-0400 Respiratory rate 12 /min Jose Valente Other [facility] Other 11-09-2022 09:00-0400 Systolic blood pressure 111 mm[Hg] Jose Valente Other [facility] Other Encounters Encounter Date Encounter Type Care Provider Facility Start: 12-09-2024 End: 12-09-2024 ambulatory Jose Valente DO Work Phone: [facility] Work Phone: Start: 12-09-2024 End: 12-09-2024 Patient encounter procedure Jose Valente DO -[facility] Work Phone: Start: 11-13-2023 End: 11-13-2023 ambulatory [facility] [place] Work Phone: Start: 11-13-2023 End: 11-13-2023 Patient encounter procedure [facility] Work Phone: Start: 06-29-2023 End: 06-29-2023 ambulatory Jose Valente Other [facility] Other Start: 06-29-2023 Office outpatient vi sit 25 minutes Jose Valente [facility] Start: 06-08-2023 End: 06-08-2023 ambulatory Jose Valente Other [facility] Other Start: 06-08-2023 Telephone encounter Jose HEBERT [facility] Start: 11-20-2022 End: 11-20-2022 ambulatory Jose Valente Other [facility] Other Start: 11-20-2022 Telephone encounter [facility] Start: 11-09-2022 End: 11-09-2022 ambulatory Jose Valente Other [facility] Other Start: 11-09-2022 Patient encounter procedure Jose Valente [facility] Start: 11-10-2021 End: 11-11-[address] JOSE VALENTE Facility: Start: 11-08-2021 Adult health examination Jose Valente Other [facility] Other Procedures Date Procedure Procedure Detail Performing Clinician Start: 11-10-[address] [place] Comment on above: Performed By: #### [facility] #### [facility] [address] [place] [address] Dr. Casi Crews Start: 03-31-2015 General examination [...] lic 2000 panel - Serum or Plasma [facility] enter Comprehensive metabo lic 1999 panel - Serum or Plasma [facility] enter [facility] Immunizations Immunization Date Immunization Notes Care Provider Fa [facility] 05-05-2024 influenza, high dose seasonal, preservative-free Jose Valente DO Work Phone: [facility] 05-03-2021 pneumococcal polysaccharide vaccine, 23 valent Jose Valente Other [facility] 04-22-2021 COVID- Nicole Garcia [facility] Other [facility] 08-31-2020 COVID-19 Nicole Garcia [facility] Other [facility] 08-03-2020 COVID-19 Nicole Garcia [facility] Other [facility] 06-04-2015 tetanus and diphther ia toxoids, adsorbed, preservative free, for adult use (5 Lf of tetanus toxoid and 2 Lf of diphtheria toxoid) [facility] 06-04-2015 tetanus toxoid, redu evelyne diphtheria toxoid, and acellular pertussis vaccine, adsorbed Jose Valente Other [facility] [employer] Other Payers Date Payer Category Payer Unknown [id number] 1955 Unknown [id number] Social History Date Type Detail Facility Sex Assigned At [facility] Other Start: 11-13-2023 Tobacco smoking stat us [facility] Never smoked tobacco (finding) [facility] Start: 1955 Sex Assigned At Male F [facility] Sex Male (finding) [facility] Evaluation note 06-29-2023 Note Date & Type [...] index [BMI] 37.0-37.9, adult (ICD-10 - Z68.37) [facility] Other Evaluation note 11-09-2022 Note Date & [...] index [BMI] 36.0-36.9, adult (ICD-10 - Z68.36) 22 Isiah, 2023 Screening PSA (prostate specific antigen) (ICD-10 - Z12.5) Yearly JOJO and PSA Oct, High risk medication use (ICD-10 - Z79.899) [facility] Other Evaluation note Note Date & Type Note Facility Evaluation note No Information [facility] Other Evaluation note Note Date & Type Note Facility Evaluation note Diagnosis Onset Date Hypercholesterolemia acute Hypertension acute Medicare annual wellness visit, subsequent noneactive Screening PSA (prostate specific antigen) noneactive [facility] Work Phone: Evaluation note Note Date & Type Note Facility Evaluation note Diagnosis Onset Date Resolution Hypercholesterolemia acute December 09, 2024 10:07am Hypertension acute December 09, 025 10:07am IFG (impaired fasting glucose) acute December 09, 2024 10:07am Obesity acute December 09 10:07am Primary osteoarthritis of right knee acute December 09, 2024 10:07am Screening PSA (prostate specific antigen) acute December 09 10:07am Medicare annual wellness visit, subsequent noneactive December 09 10:07am [facility] Work Phone: History general Narrative - Reported Note Date & Type Note Facility History general Narrative - Reported Type Medical History Benign prostatic hyp erplasia with lower urinary tract symptoms Medical History Primary hypertension Medical History Pure hypercholesterolemia Medical History Vasovagal syncope Surgical History COLONOSCOPY 2013 Surgical History APPENDECTOMY Hospitalization History SEE SURGICAL HX [facility] Other History general Narrative - Reported Note Date & Type Note Facility History general Narrative - Reported [facility] Other Reason for referral (narrative) Note Date & Type Note Facility Reason for referral (narrative) No reason for referral information available [facility] Work Phone: Summary Purpose Family History Relationship Condition Age at Onset Recorded Date/T akosua father Heart disease Unknown Hypertension Unknown Advance Directives Advance Directive Response Recorded Date/ Time Advance Directives No June 29, 2023 11:53am Chief Complaint and Reason for Visit Chief Complaint Wellness Reason for Visit Hypercholesterolemia Hypertension Medicare annual wellness visit, subsequent Screening PSA (prostate specific antigen) Chief Complaint Admit Date Wellness December 09, 2024 10:0 7am Reason for Visit Admit Date Hypercholesterolemia December 09, 2024 10: 07am Hypertension December 09, 2024 10:0 7am IFG (impaired fasting glucose) November 10:07am Obesity December 09, 2024 10:0 7am Primary osteoarthritis of right knee Rafat y 2024 10:07am Screening PSA (prostate specific antigen ) December 09, 2024 10:07am Medicare annual wellness visit, subseque nt December 09, 2024 10:07am Additional Source Comments (unrecognized sect ion and content) No Status Records Found INFORMATION SOURCE (unrecogn ized section and content) DATE CREATED AUTHOR 11/16/2021 [facility] REASON FOR VISIT (unrecogniz ed section and content) [employer]SC[employer] check Care Teams (unrecognized sec tion and content) Team Status: Active Member Role Status Dates Jose Valente DO Primary Care Provider Active Team Status: Inactive Member Role Status Dates Jose Valente DO Primary Care Provide r, Attending Provider Active Start: November 13, 2023 End: November 13, 2023 Team Status: Inactive Member Role Status Dates Jose Valente DO Primary Care Provider Active Start: December 09, 2024 End: December 09, 2024 Jose Valente DO Attending Provider Active Sta rt: December 09, 2024 End: December 09, 2024 Goals (unrecognized section and content) Goals may [...] BE BASED ON THE PRIMARY CLINICAL RECORDS. [employer] provides no warranty or guarantee of the accuracy or completeness of information in this document.
== END 2025-01-16 09:06 | disposition home or self-care (01) ==
LOC: RAD 09:06
PROVIDERS: PCP Internal Medicine; Visit Provider Internal Medicine
DX: M17.0 Bilateral primary osteoarthritis of knee (principal)
CPT/HCPCS: 73564